=== PATIENT | male | born 1995 | race Caucasian/White ===

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

== ENCOUNTER → 2017-03-28 | Outpatient (CLI) | payer BC | LOC: FIMAGING 15:00 | PROVIDERS: ATTEND Psychiatry & Neurology Neurology | DX: R56.9 Unspecified convulsions (principal); R94.02 Abnormal brain scan ==

== ENCOUNTER → 2017-05-08 | Outpatient (CLI) | payer BC | LOC: FIMAGING 10:03 | PROVIDERS: ATTEND Nurse Practitioner Family | DX: R07.89 Other chest pain (principal); R00.2 Palpitations ==

== ENCOUNTER 2017-12-21 16:09 | Emergency (ER) | payer BC ==
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
[2017-12-21 17:50] VITALS: BP 130/88
== END 2017-12-21 17:49 | disposition home or self-care (01) ==
DX: S06.0X0A Concussion without loss of consciousness, initial encounter (principal); S16.1XXA Strain of muscle, fascia and tendon at neck level, initial encounter; R40.2412 Glasgow coma scale score 13-15, at arrival to emergency department; W22.09XA Striking against other stationary object, initial encounter; Y93.16 Activity, rowing, canoeing, kayaking, rafting and tubing; Y92.838 Other recreation area as the place of occurrence of the external cause; Y99.8 Other external cause status